=== PATIENT | male | born 1970 | race Caucasian/White ===

== ENCOUNTER 2023-08-18 08:11 | Outpatient (CLI) | payer OTHER, SELFPAY | END 2023-08-18 08:12 | disposition home or self-care (01) | PROVIDERS: PCP Family Medicine; Visit Provider Surgery | DX: K40.91 Unilateral inguinal hernia, without obstruction or gangrene, recurrent (principal); Z01.818 Encounter for other preprocedural examination | CPT/HCPCS: 36415; 86850; 86900; 86901 ==

== ENCOUNTER 2023-08-24 00:52 | Day surgery (SDC) | payer OTHER, SELFPAY ==
[2023-08-13 12:09] VITALS: BMI 25.7
--- NOTE | 2023-08-13 12:18 | PC.NURSE ---
Report to the Outpatient Waiting Room, entrance under the green pavilion located off [facility], at time 6:00 on date 08/24/23. Planned Procedure Time: 7:30. Time changes happen often and if your time is changed the preop area will call you the afternoon before. - You and your visitor will be asked to self-screen and do not enter if you have any COVID symptoms. - A mask is optional within the hospital at this time. Patients may have clear liquids (water, carbonated beverages, clear teas, apple juice) until 3 hours prior to surgery with a maximum of 20 ounces. - No food from midnight until time of surgery Take the following medications with a SIP of water the morning of surgery: NONE DO NOT STOP ANY OF YOUR OTHER PRESCRIPTION MEDICATIONS PRIOR TO SURGERY ?EXCEPT THE FOLLOWING Medications to discontinue per physician: N/A Date to take last dose: N/A Please no make-up, nail czech, hairspray, perfume, deodorant, or body powder the day of surgery. No jewelry (including any body piercings) or valuables the day of surgery, leave them at home. Please take a shower or bath the night before, or the morning of, surgery with an antibacterial soap. Wear comfortable, loose fitting clothing. - Jewelry must be removed prior to entering the operating room. Rings and piercings that are not removed may be cut off. - The hospital will not accept responsibility for valuables. - Please leave all valuables, including medications, at home the day of surgery. If you are going home after surgery, a licensed mule driver must drive you home. - NO public transportation without another adult if you receive anesthesia. - We recommend that an adult stay with you for 24 hours following discharge. - We also recommend that you do not drive, make important decision, drink alcoholic beverages, or take any drugs that were not prescribed by your health care provider for at least 24 hours after your discharge time. Follow any additional instructions given to you from your surgeon. If you or anyone in your household have experienced Covid symptoms in the past week, please notify your surgeon or the nurse liaison at the phone number below for possible testing. Telephone instructions given to SUZANNE SANTIAGO and asked if any additional questions and then verbalized understanding. Patient advised to call surgeon office or pre surgery nurse liaison [phone] if any additional questions.
[2023-08-24] VITALS (11 sets, daily range): BP systolic 120–133; BP diastolic 62–94; PULSE 60–77; RESP 10–20; TEMP 36.1–36.8; O2SAT 96–100
[2023-08-24] MEDS: LACTATED RINGERS 1,000 ML 30 ML IV CONT ×3 (06:55→09:48)
[2023-08-24] MEDS: KETOROLAC 15 MG/ML VIAL (*BKC) IV PUSH (06:55)
[2023-08-24] MEDS: ACETAMINOPHEN 500 MG TABLET 1000 MG PO (06:55)
--- NOTE | 2023-08-24 07:11 | P.PNAN_ITS ---
Anes - Initial Pre Proc Eval Procedure: Operation Date: 08/24/23 07:30 Proposed Procedures p Robotic Assisted Laparoscopic Recurrent Left Inguinal Hernia Repair with Mesh - Elif Barone MD Date/Time: 08/24/23 07:11 Surgeon: Elif Barone MD Pre Op Diagnosis: Recurrent Left Inguinal Hernia Patient Data Age: 53 Gender: M Height: 1.88 m Weight: 87.7 kg Last Vital Signs Temp 98.2 F 08/24/23 07:00 Pulse 64 08/24/23 07:00 Resp 14 08/24/23 07:00 BP 121/81 08/24/23 07:00 Pulse Ox 98 08/24/23 07:00 O2 Del Method Room Air 08/24/23 07:00 Allergies Allergy/AdvReac Type Severity Reaction Status Date / Time codeine Allergy Unknown Rash Verified 08/24/23 07:07 omeprazole [From Prilosec] Allergy Unknown Swelling Verified 08/24/23 07:07 Home Medications Medication Instructions Recorded Confirmed Type loratadine 10 mg tablet (Allergy 10 mg PO DAILY 06/22/23 08/13/23 History Relief (loratadine)) Patient hx anesthesia problems: none Family hx anesthesia problems: none Results Review: All pre-operative results and documents have been reviewed as part of the pre- operative evaluation. [facility] Surgical History Surgical History (Updated 06/26/23 @ 10:43 by Maday Duff CMA) History of eye surgery x5 History of hernia repair 2012 umbilical and bilateral inguinal hernia repair by Dr. Moreno. Family History Family History Other Cancer Family history of allergic disorder Family history of kidney disease Family history of tuberculosis Social History Social History Smoking status: Former smoker Tobacco type: cigarettes Smoking end date: 05/25/93 Additional smoking assessment comments: FORMER [employer] Alcohol intake: current Drinks per week: 6 Alcohol use details: weekly Substance use: current Substance use type: marijuana Living arrangements: with family Occupation/Education: occupation Additional occupation/education comments: HVAC contractor Spiritual care concerns: No Anes - Eval Final PreProcedure Day of Procedure 08/24/23 07:11 Patient weight: normal Heart: regular rate and rhythm Lungs: clear to auscultation Airway: Mallampati scale class II Neurological: alert and oriented Last oral intake: >/= 8 hours ASA classification: II Emergent: no Anesthetic plan: proceed Anesthesia type and monitoring: general GIVS and standard monitoring Results Review: All pre-operative results and documents have been reviewed as part of the pre- operative evaluation. Informed Consent: The patient's anesthetic plan and its attendant risks and benefits were discussed with the patient/family/POA. Questions were solicited and answers provided to the satisfaction of the patient/family/POA.
--- NOTE | 2023-08-24 07:22 | PM.IMHP ---
H&P: HPI History of Present Illness Date/Time: 08/24/23 07:22 Chief Complaint: Recurrent left inguinal hernia Narrative: Hubert is a 53 y/o male who presents to the office at the request of Dr. Mcdowell for evaluation of left groin pain. Patient states he noticed increased stabbing pain to his left groin a few mos ago. He states the pain is worse with certain movements. He also reports pressure to the left groin with sitting. He denies any issues with BM's or with urinating. Patient has a history of umbilical and bilateral inguinal hernia repair [place] [address] Moreno. Review of Systems Review of Systems: All systems reviewed & are unremarkable except as noted in HPI and below PMFSH Surgical History Surgical History History of eye surgery x5 History of hernia repair 2012 umbilical and bilateral inguinal hernia repair by Dr. Moreno. Family History Family History Other Cancer Family history of allergic disorder Family history of kidney disease Family history of tuberculosis Social History Social History Smoking status: Former smoker Tobacco type: cigarettes Smoking end date: 05/25/93 Additional smoking assessment comments: FORMER [employer] Alcohol intake: current Drinks per week: 6 Alcohol use details: weekly Substance use: current Substance use type: marijuana Living arrangements: with family Occupation/Education: occupation Additional occupation/education comments: AC contractor Spiritual care concerns: No Meds Home Medications and Allergies Home Medications Medication Instructions Recorded Confirmed Type loratadine 10 mg tablet (Allergy 10 mg PO DAILY 06/22/23 08/13/23 History Relief (loratadine)) Allergies Allergy/AdvReac Type Severity Reaction Status Date / Time codeine Allergy Unknown Rash Verified 08/24/23 07:07 omeprazole [From Prilosec] Allergy Unknown Swelling Verified 08/24/23 07:07 Vital Signs Vital Signs - 24 hr 08/24/23 07:00 Temperature 36.8 C Pulse Rate 64 Respiratory Rate 14 Blood Pressure 121/81 Pulse Oximetry 98 Oxygen Delivery Room Air Exam Const: General: cooperative, comfortable and no acute distress Resp: Auscultation: clear to auscultation bilaterally Cardio: Rate: regular rate Rhythm: regular rhythm GI: Inspection: normal to inspection and non-distended GI Palp: Yes abdominal tenderness, Yes Soft to palpation, Yes Tenderness to palpation present (GI) and Yes Hernia present Other: recurrent left inguinal hernia Neuro: General: patient oriented x3 and CN's II-XI intact bilaterally Assessment and Plan Assessment and plan (1) Recurrent left inguinal hernia: Code(s): K40.91 - Unilateral inguinal hernia, without obstruction or gangrene, recurrent Status: Acute Assessment and Plan: will set up for robotic assisted repair of recurrent left inguinal hernia with mesh
--- NOTE | 2023-08-24 07:24 | WPDHPUPDATE1 ---
History and Physical Update Update Date/Time: 08/24/23 07:24 History and Physical has been reviewed, including an updated exam of the patient. There are NO changes in the patient's condition. Risks, benefits, and alternatives have been discussed and questions answered. Patient agrees to proceed with procedure.
[2023-08-24] MEDS: ceFAZolin 2 GM/D5W 50 ML 2 GM/50 ML BAG IVPB (07:30)
[2023-08-24] MEDS: BUPIVACAINE/EPINEPHRINE 0.5% 50 ML VIAL 30 ML INFILTRATE (08:04)
--- NOTE | 2023-08-24 08:44 | W.PM.PROC2 ---
Procedure Note - Detailed Date of Procedure 08/24/23 Pre-op Diagnosis Recurrent Left Inguinal Hernia Post-op Diagnosis Same Procedure Performed robotic assisted recurrent left inguinal hernia repair with mesh Surgeon Elif Barone MD Anesthesia General Indications 53 y/o M presenting c recurrent LIH and worsening groin pain over last few weeks Findings recurrent indirect left inguinal hernia Description of Procedure Patient was brought into the operating room and placed in the supine position. After adequate induction of general anesthesia, the patient was prepped and draped in normal sterile fashion. A time-out was then done to verify the patient's identity, as well as the procedure being performed. I began by making a 8 mm incision in the supraumbilical region, a Veress needle was then placed into the peritoneal cavity. CO2 gas was then insufflated and after adequate pneumoperitoneum was achieved, the Veress needle was removed. I then placed an 8 mm trocar through this incision. I then placed the endoscope through this trocar site and under direct visualization placed 2 further 8 mm ports in the right and left mid abdomen. The [employer] robot was then docked to the 3 trocar sites. I then scrubbed out and went to the robotic console. Upon examining the pelvis, it was noted that the patient had a moderate left inguinal hernia. The right side was examined and no hernia defect was noted. There was some scarring in the inguinal region secondary to previous open repair. I began by making a preperitoneal flap approximately 6 cm superior to the defect. This flap was carried medially past the umbilical ligaments and laterally to the transversalis. It then began dissection of my medial compartment taking this down to the pubic tubercle. I then began the lateral dissection taking this down to the transversalis fascia. Once these compartments were achieved, I began dissection around the cord structures. A moderate sized indirect hernia was noted at this point. Using careful dissection, was able to reduce indirect hernia sac off the cord structures. Once this was adequately done, I went ahead and placed a large piece of 3D Max mesh into the abdominal cavity. The mesh was carefully positioned, centering the center of the mesh over the indirect defect. Once this was done, was very satisfied with our repair. Using 3-0 Vicryl sutures, I tacked the mesh medially to Asher's ligament. Two lateral sutures were placed from the mesh to the transversalis fascia. I then closed the peritoneal flap with a running 2.0 V Lock suture. The abdomen was then desufflated, and all ports were removed. All incisions were then closed with the 4.0 monocryl suture. Dermabond was placed on each wound. The patient tolerated the procedure well, was extubated in the operating room postoperatively, and will now be transferred to the recovery room in stable condition. Implants large 3DMax mesh Estimated Blood Loss 10 Drains No Packing No Pathology None sent Complications No immediate complications Condition Stable Disposition PACU [facility] Billing Surgery - Charge Forward: Surgery Billing
[2023-08-24] MEDS: fentaNYL CITRATE INJ (*CRX) 100 MCG/2 ML VIAL 25 MCG IV PUSH ×6 (09:06→09:24)
[2023-08-24] MEDS: traMADol HCL (*CRX) 50 MG TABLET PO (09:47)
== END 2023-08-24 11:20 | disposition home or self-care (01) ==
PROVIDERS: PCP Family Medicine Sports Medicine; Visit Provider Surgery
PROC: 8E0Y4CZ Robotic Assisted Procedure of Lower Extremity, Percutaneous Endoscopic Approach (ICD-10-PCS; CPT 49650; principal; 2023-08-24 07:30)
DX: K40.91 Unilateral inguinal hernia, without obstruction or gangrene, recurrent (principal); F12.90 Cannabis use, unspecified, uncomplicated; Z98.890 Other specified postprocedural states; Z87.891 Personal history of nicotine dependence; Z80.9 Family history of malignant neoplasm, unspecified
CPT/HCPCS: 49651; S2900; 36415; 86850; 86900; 86901; A9270; C1781; J0690; J1100; J1885; J2405; J2704; J3010; J7120

== ENCOUNTER 2024-03-02 14:53 | Outpatient (CLI) | payer OTHER, SELFPAY | END 2024-03-02 14:54 | disposition home or self-care (01) | LOC: ANHSURGERY 14:55 | PROVIDERS: PCP Family Medicine Sports Medicine; Visit Provider Surgery | DX: K40.91 Unilateral inguinal hernia, without obstruction or gangrene, recurrent (principal) | CPT/HCPCS: 36415; 86850; 86900; 86901 ==

== ENCOUNTER 2024-03-07 00:58 | Day surgery (SDC) | payer OTHER, SELFPAY ==
[2024-02-29 09:47] VITALS: BMI 25.0
--- NOTE | 2024-02-29 09:52 | PC.NURSE ---
Report to the Outpatient Waiting Room, entrance under the green pavilion located off [facility], at time _0600_ on date _[id number]_. Planned Procedure Time: _0730_.? Time changes happen often and if your time is changed the preop area will call you the afternoon before. - You and your visitor will be asked to self-screen and do not enter if you have any COVID symptoms. Please call surgeon if you need to reschedule. - A mask is optional within the hospital at this time. Patients may have clear liquids (water, carbonated beverages, clear teas, apple juice) until 3 hours prior to surgery with a maximum of 20 ounces. - No food from midnight until time of surgery and no smoking Take only the following medications with a SIP of water on the morning of surgery: ___None DO NOT STOP ANY OF YOUR OTHER PRESCRIPTION MEDICATIONS PRIOR TO SURGERY EXCEPT THE FOLLOWING Medications to discontinue per physician ____None Date to take last dose Please no make-up, nail azeri, hairspray, perfume, deodorant, or body powder the day of surgery.? No jewelry (including any body piercings) or valuables the day of surgery, leave them at home.? Please take a shower or bath the night before, or the morning of, surgery with an antibacterial soap.? Wear comfortable, loose fitting clothing.? - Jewelry must be removed prior to entering the operating room.? Rings and piercings that are not removed may be cut off. - The hospital will not accept responsibility for valuables.? - Please leave all valuables, including medications, at home the day of surgery. If you are going home after surgery, a licensed tractor trailer moving van driver must drive you home.? - NO public transportation without another adult if you receive anesthesia. - We recommend that an adult stay with you for 24 hours following discharge. - We also recommend that you do not drive, make important decision, drink alcoholic beverages, or take any drugs that were not prescribed by your health care provider for at least 24 hours after your discharge time. Follow any additional instructions given to you from your surgeon. Telephone instructions given to __Paul__and asked if any additional questions and then verbalized understanding. Patient advised to call surgeon office or pre surgery nurse liaison [phone] if any additional questions.
--- NOTE | 2024-03-04 14:45 | P.PNAN_ITS ---
Anes - Initial Pre Proc Eval Procedure: Operation Date: 03/07/24 07:30 Proposed Procedures p Robotic Assisted Recurrent Right Inguinal Hernia Repair with Mesh - Elif Barone MD Date/Time: 03/04/24 14:45 Surgeon: Elif Barone MD Pre Op Diagnosis: recurrent right inguinal hernia Patient Data Age: 53 Gender: M Height: 1.88 m Weight: 88.6 kg Allergies Allergy/AdvReac Type Severity Reaction Status Date / Time omeprazole [From Prilosec] Allergy Severe Swelling Verified 03/07/24 06:27 Proton Pump Inhibitors Allergy Severe Swelling Verified 03/07/24 06:27 codeine Allergy Unknown Rash Verified 02/29/24 09:46 Home Medications Medication Instructions Recorded Confirmed Type loratadine 10 mg tablet 10 mg PO DAILY 02/29/24 03/07/24 History Patient hx anesthesia problems: none Family hx anesthesia problems: none Results Review: All pre-operative results and documents have been reviewed as part of the pre- operative evaluation. [facility] Surgical History Surgical History History of eye surgery x5 History of hernia repair 2012 umbilical and bilateral inguinal hernia repair by Dr. Moreno. Hx of inguinal hernia repair robotic assisted recurrent left inguinal hernia repair with mesh 08/24/23 Family History Family History Other Cancer Family history of allergic disorder Family history of kidney disease Family history of tuberculosis Social History Social History Smoking status: Never smoker Tobacco type: cigarettes Smoking end date: 05/25/93 Additional smoking assessment comments: FORMER SOC[employer] S[employer]KER Alcohol intake: current Drinks per week: 6 Alcohol use details: weekly Substance use: current Substance use type: marijuana Living arrangements: with family Occupation/Education: occupation Additional occupation/education comments: HVAC contractor Spiritual care concerns: No Anes - Eval Final PreProcedure Day of Procedure 03/04/24 14:45 Patient weight: normal Heart: regular rate and rhythm Lungs: clear to auscultation Airway: Mallampati scale class II Neurological: alert and oriented Last oral intake: >/= 8 hours ASA classification: II Emergent: no Anesthetic plan: proceed Anesthesia type and monitoring: general ETT and standard monitoring Results Review: All pre-operative results and documents have been reviewed as part of the pre- operative evaluation. Informed Consent: The patient's anesthetic plan and its attendant risks and benefits were discussed with the patient/family/POA. Questions were solicited and answers provided to the satisfaction of the patient/family/POA.
[2024-03-07] VITALS (11 sets, daily range): BP systolic 118–145; BP diastolic 80–99; PULSE 50–88; RESP 10–20; TEMP 36.1–36.6; O2SAT 95–100; BMI 25.2
[2024-03-07] MEDS: ACETAMINOPHEN 500 MG TABLET 1000 MG PO (06:40)
[2024-03-07] MEDS: KETOROLAC 15 MG/ML VIAL (*BKC) IV PUSH (06:40)
[2024-03-07] MEDS: LACTATED RINGERS 1,000 ML 30 ML IV CONT ×3 (06:46→10:45)
--- NOTE | 2024-03-07 07:16 | WPDHPUPDATE1 ---
History and Physical Update Update Date/Time: 03/07/24 07:16 History and Physical has been reviewed, including an updated exam of the patient. There are NO changes in the patient's condition. Risks, benefits, and alternatives have been discussed and questions answered. Patient agrees to proceed with procedure.
[2024-03-07] MEDS: ceFAZolin 2 GM/D5W 50 ML 2 GM/50 ML BAG IVPB (07:30)
[2024-03-07] MEDS: BUPIVACAINE/EPINEPHRINE 0.5% 10 ML VIAL 30 ML INFILTRATE (08:46)
--- NOTE | 2024-03-07 09:07 | W.PM.PROC2 ---
Procedure Note - Detailed Date of Procedure 03/07/24 Pre-op Diagnosis recurrent right inguinal hernia Post-op Diagnosis Same Procedure Performed robotic assisted repair recurrent right inguinal hernia with mesh Surgeon Elif Barone MD Anesthesia General Indications 53-year-old male presenting to the office complaining recurrent right inguinal hernia. The patient had previous open repair in 2011. Findings Recurrent direct right inguinal hernia, previous plug noted in the direct space with medial recurrence Description of Procedure Patient was brought into the operating room and placed in the supine position. After adequate induction of general anesthesia, the patient was prepped and draped in normal sterile fashion. A time-out was then done to verify the patient's identity, as well as the procedure being performed. Began by making a 8 mm incision in the supraumbilical region, a Veress needle was then placed into the peritoneal cavity. CO2 gas was then insufflated and after adequate pneumoperitoneum was achieved, the Veress needle was removed. I then placed an 8 mm trocar through this incision. I then placed the endoscope through this trocar site and under direct visualization placed 2 further 8 mm ports in the right and left mid abdomen. The [employer] robot was then docked to the 3 trocar sites. I then scrubbed out and went to the robotic console. Upon examining the pelvis, it was noted that the patient had a moderate right inguinal hernia. The left side was examined and no hernia defect was noted. I began by making a preperitoneal flap approximately 6 cm superior to the defect. This flap was carried medially past the umbilical ligaments in laterally to the transversalis. It then began dissection of my medial compartment taking this down to the pubic tubercle. A moderate sized direct hernia was noted. There was noted to be a mesh plug in the direct space. The recurrence was noted to be medial to the plug. Using careful dissection, I was able to reduce the direct hernia. The previous plug was left in position as it was noted to be quite scarred in. I then began the lateral dissection taking this down to the transversalis fascia. Once these compartments were achieved, I began dissection around the cord structures. There was no direct hernia noted at this point. Once this was adequately done, I went ahead and placed a large piece of 3D Max mesh into the abdominal cavity. The mesh was carefully positioned, centering the center of the mesh over the direct defect. Once this was done, was very satisfied with our repair. Using 3-0 Vicryl sutures, I tacked the mesh medially to Asher's ligament. Two lateral sutures were placed from the mesh to the transversalis fascia. I then closed the peritoneal flap with a running 2.0 V Lock suture. The abdomen was then desufflated, and all ports were removed. All incisions were then closed with the 4.0 monocryl suture. Dermabond was placed on each wound. The patient tolerated the procedure well, was extubated in the operating room postoperatively, and will now be transferred to the recovery room in stable condition. Implants large 3DMax mesh Estimated Blood Loss 10 Drains No Packing No Pathology None sent Complications No immediate complications Condition Stable Disposition PACU [facility] Billing Surgery - Charge Forward: Surgery Billing
[2024-03-07] MEDS: fentaNYL CITRATE INJ (*CRX) 100 MCG/2 ML VIAL 25 MCG IV PUSH ×4 (09:24→09:42)
[2024-03-07] MEDS: oxyCODONE HCL (*CRX) 5 MG TAB IR PO (10:28)
[2024-03-07] MEDS: diphenhydrAMINE HCl CAP 25 MG CAPSULE PO (10:30)
== END 2024-03-07 11:25 | disposition home or self-care (01) ==
PROVIDERS: PCP Family Medicine Sports Medicine; Visit Provider Surgery
PROC: 8E0Y4CZ Robotic Assisted Procedure of Lower Extremity, Percutaneous Endoscopic Approach (ICD-10-PCS; CPT 49650; principal; 2024-03-07 07:30)
DX: K40.91 Unilateral inguinal hernia, without obstruction or gangrene, recurrent (principal); F12.90 Cannabis use, unspecified, uncomplicated; Z98.890 Other specified postprocedural states; Z87.891 Personal history of nicotine dependence; Z80.9 Family history of malignant neoplasm, unspecified
CPT/HCPCS: 49651; S2900; A9270; C1781; J0690; J1100; J1885; J2003; J2250; J2405; J2704; J3010; J7030; J7120